=== PATIENT | female | born 1950 | race Caucasian/White ===

== ENCOUNTER → 2019-08-23 | Outpatient (CLI) | payer OTHER | END | disposition home or self-care (01) | LOC: RAH 11:30 | PROVIDERS: ATTEND Family Medicine | DX: Z12.31 Encounter for screening mammogram for malignant neoplasm of breast (principal) | CPT/HCPCS: 77067 ==

== ENCOUNTER → 2019-10-27 | Outpatient (CLI) | payer OTHER | END | disposition home or self-care (01) | LOC: OIH 10:29 | PROVIDERS: ATTEND Family Medicine | DX: J45.991 Cough variant asthma (principal) | CPT/HCPCS: 71046 ==

== ENCOUNTER → 2020-04-12 | Outpatient (CLI) | payer OTHER | END | disposition home or self-care (01) | LOC: RAH 10:18 | PROVIDERS: ATTEND Family Medicine | DX: N20.0 Calculus of kidney (principal); E04.1 Nontoxic single thyroid nodule; K76.0 Fatty (change of) liver, not elsewhere classified | CPT/HCPCS: 76536; 76700 ==

== ENCOUNTER → 2022-01-06 | Outpatient (CLI) | payer OTHER ==
[2022-01-06 12:24] LABS: BASOPHILS % (AUTO) 0.7 % (0.0-5.0); EOSINOPHILS % (AUTO) 2.5 % (0.0-8.0); HEMATOCRIT 41.5 % (36-48); LYMPHOCYTES % (AUTO) 37.9 % (21.0-51.0); MEAN CORPUSCULAR HEMOGLOBIN 28.4 pg (27.0-33.0); MEAN CORPUSCULAR HGB CONC 31.8 g/dL (32.0-36.0); MEAN CORPUSCULAR VOLUME 89.2 fL (79-99); MONOCYTES % (AUTO) 6.2 % (3.0-13.0); NEUTROPHILS % (AUTO) 52.5 % (40.0-77.0); PLATELET COUNT (AUTO) 281 K/uL (130-400); RED BLOOD CELL COUNT(AUTO) 4.65 MIL/uL (4.00-5.50); RED CELL DISTRIBUTION WIDTH 13.9 % (11.0-15.5); WHITE BLOOD COUNT (AUTO) 8.7 K/uL (4.8-10.8)
[2022-01-06 12:34] LABS: CREATININE 0.9 mg/dL (0.5-1.5); POTASSIUM 4.5 mmol/L (3.5-5.1)
[2022-01-06 12:38] LABS: INR 0.95 (0.85-1.15); PROTHROMBIN TIME 10.4 SEC (9.6-11.6)
[2022-01-06 12:39] LABS: PARTIAL THROMBOPLASTIN TIME 27.6 SEC (26.3-35.5)
== END | disposition home or self-care (01) ==
LOC: LAB 11:39
PROVIDERS: ATTEND Internal Medicine Cardiovascular Disease
DX: I87.2 Venous insufficiency (chronic) (peripheral) (principal); I83.813 Varicose veins of bilateral lower extremities with pain; I87.1 Compression of vein; M79.662 Pain in left lower leg; M79.661 Pain in right lower leg
CPT/HCPCS: 36415; 80048; 85025; 85610; 85730

== ENCOUNTER → 2023-10-29 | Outpatient (CLI) | payer OTHER | END | disposition home or self-care (01) | LOC: RAH 11:30 | PROVIDERS: ATTEND Family Medicine | DX: Z12.31 Encounter for screening mammogram for malignant neoplasm of breast (principal) | CPT/HCPCS: 77067 ==

== ENCOUNTER → 2024-09-07 | Outpatient (CLI) | payer OTHER ==
--- NOTE | 2024-09-09 11:28 | HMCSR ---
APPROVED REPORT Laterality: Bilateral VELOCITY AND DOPPLER WAVEFORM ANALYSIS METAL TANK ERECTOR (R) 170.0cm/sec, Biphasic, METAL TANK ERECTOR (L) 139.8cm/sec, Triphasic, Prof Fem Art. (R) 59.4cm/sec, Biphasic, Prof Fem Art. (L) 75.6cm/sec, Biphasic, Fem Art Prox. (R) 102.0cm/sec, Biphasic, Fem Art Prox. (L) 136.0cm/sec, Triphasic, Fem Art Mid. (R) 98.0cm/sec, Biphasic, Fem Art Mid. (L) 100.1cm/sec, Biphasic, Fem Art Dist (R) 106.3cm/sec, Biphasic, Fem Art Dist. (L) 102.0cm/sec, Biphasic, Pop Art(AK) (R) 63.7cm/sec, Biphasic, Pop Art (AK) (L) 90.7cm/sec, Biphasic, Pop Art (Fossa)(R) 63.7cm/sec, Biphasic, Pop Art (Fossa) (L) 68.0cm/sec, Biphasic, Pop Art(BK) (R) 82.5cm/sec, Biphasic, Pop Art (BK) (L) 71.8cm/sec, Biphasic, MATTRESS PACKER Dist. (R) 88.3cm/sec, Biphasic, MATTRESS PACKER Dist. (L) 96.3cm/sec, Biphasic, Per Art Dist. (R) 37.3cm/sec, Biphasic, Per Art Dist. (L) 58.6cm/sec, Biphasic, LISETTE Dist. (R) 52.5cm/sec, Biphasic, LISETTE Dist. (L) 90.7cm/sec, Biphasic, Technologist Impression Diffuse atherosclerosis throughout the bilateral lower extremities with no evidence of significant ar terial insufficiency. Conclusion No evidence of significant arterial insufficiency of bilateral lower extremities. Conclusion No evidence of significant arterial insufficiency of bilateral lower extremities.
--- NOTE | 2024-09-09 11:28 | HMCSR ---
APPROVED REPORT Bilateral Lower Extremity Venous Study for DVT., Venous Competence.Study performed with patient in up right position or in reverse Trendelenburg. Vein Imaging CFV (R): Normal flow, augmentation and compression. No evidence of DVT, Diameter 13.2 mm SFJ (R): Normal flow, augmentation and compression. No evidence of DVT. FEM (R): Normal flow, augmentation and compression. No evidence of DV, 450 ms of DVR. POP (R): Normal flow, augmentation and compression. No evidence of DVT. DFV (R): Normal flow, augmentation and compression. No evidence of DVT. PTV (R): Normal flow, augmentation and compression. No evidence of DVT. Peroneals (R): Normal flow, augmentation and compression. No evidence of DVT. GAS (R): Normal flow, augmentation and compression. No evidence of DVT. CFV (L): Normal flow, augmen tation and compression. No evidence of DVT, Diameter 16.0 mm, 339 ms of DVR. SFJ (L): Normal flow, augmentation and compression. No evidence of DVT. FEM (L): Normal flow, augmentation and compression. No evidence of DV, 456 ms of DVR. POP (L): Normal flow, augmentation and compression. No evidence of DV, 400 ms of DVR. DFV (L): Normal flow, augmentation and compression. No evidence of DVT. PTV (L): Normal flow, augmentation and compression. No evidence of DVT. Peroneals (L): Normal flow, augmentation and compression. No evidence of DVT. GAS (L): Normal flow, augmentation and compression. No evidence of DVT. Technologist Impression The deep veins of the bilateral lower extremities appear patent and compressible without evidence of thrombus. Deep venous reflux noted. There is evidence of significant superficial venous insufficiency in the bilateral greater saphenous veins. RGSV Junction 4.7 mm 0 ms Mid thigh 4.8 mm 611 ms Knee 3.5 mm 933 ms Mid- calf 2.3 mm 0 ms RSSV Prox 2.5 mm 0 272 ms Mid 1.9 mm 289 ms LGSV Junction 3.3 mm 0 ms Mid thigh 3.0 mm 90047 ms Knee 2.8 mm 0 ms Mid-calf 2.1 mm 406 ms LSSV Prox 1.8 mm 0 ms Mid 2.4 mm 289 ms Conclusion Severe superficial venous reflux of bilateral greater saphenous veins Deep venous reflux noted Consider formal venography with intravascular ultrasound if clinically indicated Conclusion Severe superficial venous reflux of bilateral greater saphenous veins Deep venous reflux noted Consider formal venography with intravascular ultrasound if clinically indicated
== END | disposition home or self-care (01) ==
LOC: SHCH 13:56
PROVIDERS: ATTEND Internal Medicine Cardiovascular Disease
DX: I70.293 Other atherosclerosis of native arteries of extremities, bilateral legs (principal); I87.2 Venous insufficiency (chronic) (peripheral); I87.1 Compression of vein
CPT/HCPCS: 93925; 93970

== ENCOUNTER → 2025-03-22 | Outpatient (CLI) | payer OTHER ==
--- NOTE | 2025-03-22 12:04 | HMCIMG ---
Exam Type: CT HEAD/BRAIN W/O CONTRAST Clinical Information: UNSPEC HEAD INJJURY Comparison: None CT Dose Index (CTDI): 57.33 mGy Dose Length Product (DLP): 956.79 total mGy-cm Findings: The examination is unremarkable. Forrest-white matter junction is preserved. No intra or extra axial lesions or fluid collections are seen. Specifically, forrest and white matter are normal in signal characteristics with normal caliber of ventricles and periventricular cisterns with no evidence of intra or or extra-axial hemorrhage, lacunar infarct, or major territorial infarct, mass, or other abnormality. There are no infarcts. There are no hemorrhages. Periventricular white matter locations are preserved. The orbital contents and structures of the posterior fossa are intact. Impression: Normal CT of the head. This study was performed using dose reduction techniques to include automated exposure control and/or adjustment of the mA and/or kV according to patient size.
== END | disposition home or self-care (01) ==
LOC: RAH 10:57
PROVIDERS: ATTEND Family Medicine
DX: S00.93XA Contusion of unspecified part of head, initial encounter (principal); X58.XXXA Exposure to other specified factors, initial encounter; Y93.89 Activity, other specified; Y92.89 Other specified places as the place of occurrence of the external cause; Y99.8 Other external cause status
CPT/HCPCS: 70450